=== PATIENT | female | born 1955 | race American Indian/Alaskan Native ===

== ENCOUNTER 2022-12-06 05:09 | Observation (INO) | payer BC, MEDICARE ==
[2022-12-04 11:51] LABS: BASOPHILS % 0.3 % (0.0-1.0); EOSINOPHILS # (AUTO) 0.2 (0.0-0.4); EOSINOPHILS % 3.1 % (0.0-6.0); HEMATOCRIT 41.9 % (34.2-44.1); HEMOGLOBIN 13.2 g/dL (12.0-16.0); LYMPHOCYTES # (AUTO) 1.4 (1.0-3.2); LYMPHOCYTES % 22.5 % (18.0-39.1); MEAN CORPUSCULAR HEMOGLOBIN 28.6 pg (28-32); MEAN CORPUSCULAR HGB CONC 31.5 g/dL (31-35); MEAN CORPUSCULAR VOLUME 90.7 fL (81-99); MONOCYTES # (AUTO) 0.5 (0.2-0.8); MONOCYTES % 7.5 % (4.4-11.3); NEUTROPHILS # (AUTO) 4.1 (2.1-6.9); NEUTROPHILS % 66.3 % (38.7-80.0); PLATELET COUNT 220 x10e3/uL (140-360); RED BLOOD COUNT 4.62 x10e6/uL (3.6-5.1); RED CELL DISTRIBUTION WIDTH 14.2 % (11.7-14.4)
[2022-12-04 12:08] LABS: INR 0.91; PROTHROMBIN TIME 12.5 seconds (11.9-14.5)
[2022-12-04 12:09] LABS: PARTIAL THROMBOPLASTIN TIME 29.5 seconds (23.8-35.5)
[2022-12-04 12:16] LABS: ANION GAP 14.2 mmol/L (8-16); CALCIUM 9.3 mg/dL (8.4-10.2); CREATININE, SERUM 0.94 mg/dL (0.57-1.11); POTASSIUM 4.2 mmol/L (3.5-5.1)
[~2022-12-06] VITALS: Ht 149.9 cm; Wt 6.4 kg
[~2022-12-06 05:09] MED LIST: DICLOFENAC TOP; LIDOCAINE HCL50 ML TOP; METHOCARBAMOL750 MG PO; MIRALAX17 GM PO; MORPHINE PO; MORPHINE SULFAT30 M2 PO; OMEPRAZOLE40 MG PO; RELISTOR150 MG PO; SINGULAIR10 MG PO; STOOL SOFTENER50 MG PO; VALACYCLOVIR1000 MG PO
[2022-12-06] MEDS ORDERED: Vancomycin IV 1 GM VIAL ONE (06:05)
[2022-12-06] MEDS ORDERED: SODIUM CHLORIDE 0.9% 250ML 250 ML ONE (06:06)
[2022-12-06] MEDS ORDERED: ONDANSETRON ODT8 MG PO (06:11)
[2022-12-06] MEDS ORDERED: DEXMEDETOMIDINE HCL 2 ML ONE (08:58)
[2022-12-06] MEDS ORDERED: SODIUM CHLORIDE 0.9% 100 ML ONE ×2 (08:58→16:18)
[2022-12-06] MEDS ORDERED: SUGAMMADEX SODIUM 200 MG/2 ML VIAL IV ONE ×2 (10:37→11:55)
[2022-12-06] MEDS ORDERED: MORPHINE 15 MG PO SCH (11:15)
[2022-12-06] MEDS ORDERED: PROMETHAZINE HCL (IM) 25 MG/ML VIAL IM PRN (11:15)
[2022-12-06] MEDS ORDERED: MORPHINE SULFATE 5 MG/ML VIAL IM PRN (11:15)
[2022-12-06] MEDS ORDERED: ACETAMINOPHEN 325 MG TAB PO PRN (11:15)
[2022-12-06] MEDS ORDERED: ONDANSETRON HCL INJ 2MG/ML 2ML 2 MG/ML VIAL IV PRN (11:15)
[2022-12-06] MEDS ORDERED: POLYETHYLENE GLYCOL 3350 17 GM PACK PO PRN (11:15)
[2022-12-06] MEDS ORDERED: ZOLPIDEM TARTRATE 5 MG TAB PO PRN (11:15)
[2022-12-06] MEDS ORDERED: LIDOCAINE HCL 4% 50 ML BTL TOP PRN (11:15)
[2022-12-06] MEDS ORDERED: MAGNESIUM/ALUMINUM/SIMETHICONE 30 ML UDC PO PRN (11:15)
[2022-12-06] MEDS ORDERED: FENTANYL CITRATE/PF 100MCG/2 ML INJ ONE ×2 (11:16→11:37)
[2022-12-06] MEDS ORDERED: MIDAZOLAM HCL 2 MG/2 ML VIAL ONE (11:16)
[2022-12-06] MEDS ORDERED: HYDROCODON-ACE1 EA12 PO (11:18)
[2022-12-06] MEDS: CARISOPRODOL 350 MG TAB PO PRN (12:00)
[2022-12-06] MEDS: OXYCODONE/ACETAMINOPHEN 5-325 1 EACH TABLET PO PRN ×2 (12:01→16:36)
[2022-12-06] MEDS ORDERED: DEXAMETHASONE SOD PHOS INJ 4 MG/ML SDV ONE (12:02)
[2022-12-06] MEDS ORDERED: PROPOFOL IV EMULSION 10 MG/ML 20 ML VIAL ONE (12:02)
[2022-12-06] MEDS ORDERED: ONDANSETRON HCL INJ 2MG/ML 2ML 2 MG/ML VIAL ONE (12:02)
[2022-12-06] MEDS ORDERED: POVIDONE IODINE 0.05% 0.05 % ML PO ONE (12:02)
[2022-12-06] MEDS ORDERED: ROCURONIUM BROMIDE 10 MG/ML 5ML VIAL IV ONE (12:02)
[2022-12-06] MEDS ORDERED: PHENYLEPHRINE HCL 1% 10 MG/ML VIAL ONE (12:02)
[2022-12-06] MEDS ORDERED: SEVOFLURANE INHAL SOLN 250 ML PEN BTL ONE (12:02)
[2022-12-06] MEDS ORDERED: EPHEDRINE SULFATE INJ 50 MG/ML VIAL ONE (12:02)
[2022-12-06] MEDS ORDERED: LIDOCAINE HCL 2% LOCAL INJ 5 ML SDV VIAL INJ ONE (12:02)
[2022-12-06 12:30] VITALS: BP 189/85
[2022-12-06 12:45] VITALS: BP 189/85
[2022-12-06] MEDS: METHOCARBAMOL 750 MG TAB PO SCH ×3 (13:05→21:01)
[2022-12-06 16:03] VITALS: BP 134/73
[2022-12-06] MEDS: LACTATED RINGER'S 1,000 ML IV SCH ×2 (16:36→19:35)
[2022-12-06] MEDS: HYDROMORPHONE 1MG/1ML INJ IV PRN ×2 (17:32→23:25)
[2022-12-06 20:00] VITALS: BP 161/80
[2022-12-06] MEDS: Vancomycin IV 1 GM in SODIUM CHLORIDE 0.9% 250ML 250 ML IV SCH (21:00)
[2022-12-06] MEDS ORDERED: MORPHINE SULFATE 30 MG TAB ER PO SCH (21:00)
[2022-12-06 23:10] VITALS: BP 161/80
[2022-12-06] MEDS: CEPACOL SORE THROAT LOZENGES PO PRN (23:24)
[2022-12-07 02:07] VITALS: BP 143/86
[2022-12-07] MEDS: HYDROMORPHONE 1MG/1ML INJ IV PRN ×2 (03:31→07:24)
[2022-12-07 04:56] VITALS: BP 135/75
[2022-12-07] MEDS ORDERED: METHYLNALTREXONE BROMIDE 150 MG PO SCH (07:30)
[2022-12-07] MEDS: Vancomycin IV 1 GM in SODIUM CHLORIDE 0.9% 250ML 250 ML IV SCH (07:32)
[2022-12-07] MEDS: METHOCARBAMOL 750 MG TAB PO SCH (08:55)
[2022-12-07] MEDS: CARISOPRODOL 350 MG TAB PO PRN (08:57)
[2022-12-07] MEDS ORDERED: MONTELUKAST SODIUM 10 MG TAB PO SCH (09:00)
[2022-12-07] MEDS ORDERED: PANTOPRAZOLE SOD 40 MG TABEC PO SCH (09:00)
[2022-12-07] MEDS ORDERED: ONDANSETRON HCL 4 MG ORAL DISINTEGRATING TAB PO SCH (09:00)
[2022-12-07 09:03] VITALS: BP 118/54
[2022-12-07] MEDS: CEPACOL SORE THROAT LOZENGES PO PRN (10:36)
== END 2022-12-07 11:20 | disposition home or self-care (01) ==
LOC: OR 05:09 → PACU V 11:08 → MED/SURG 12:30
PROVIDERS: ADMIT Neurological Surgery; ATTEND Neurological Surgery
DX: M43.12 Spondylolisthesis, cervical region (principal); Z01.818 Encounter for other preprocedural examination; Z20.822 Contact with and (suspected) exposure to COVID-19; J44.9 Chronic obstructive pulmonary disease, unspecified; M81.0 Age-related osteoporosis without current pathological fracture; I10 Essential (primary) hypertension
CPT/HCPCS: 0223U; 20931; 22551; 22552; 22845; 36415; 71046; 72040; 76000; 80048; 85025; 85610; 85730; 86850; 86900; 88304; 88311; 93005; C1713 ×5; C1768; G0378 ×2; J1100; J1170 ×2; J2001; J2250; J2370; J2405; J2704; J3010; J3370 ×2; J7050 ×3; J7121; Q0162; S0164